=== PATIENT | male | born 2000 | race Caucasian/White ===

== ENCOUNTER 2019-08-09 16:32 | Emergency (ER) | payer OTHER ==
[2019-08-09 17:16] LABS: BASOPHILS % (AUTO) 0.4 %; EOSINOPHILS # (AUTO) 0.2 10^3/uL (0.0-0.7); EOSINOPHILS % (AUTO) 2.3 %; HGB - HEMOGLOBIN 15.7 g/dL (14.0-18.0); LYMPHOCYTES # (AUTO) 1.9 10^3/uL (1.5-3.5); LYMPHOCYTES % (AUTO) 20.2 %; MEAN CORPUSCULAR HEMOGLOBIN 30.8 pg (27.0-31.0); MEAN CORPUSCULAR HGB CONC 35.6 g/dL (32.0-36.0); MEAN CORPUSCULAR VOLUME 86.6 fL (80.0-94.0); MEAN PLATELET VOLUME 10.5 fL (7.4-11.4); MONOCYTES # (AUTO) 0.8 10^3/uL (0.0-1.0); MONOCYTES % (AUTO) 8.7 %; NEUTROPHILS # (AUTO) 6.4 10^3/uL (1.5-6.6); NEUTROPHILS % (AUTO) 67.9 %; PLT - PLATELET COUNT 250 10^3/uL (130-450); RED BLOOD COUNT 5.09 10^6/uL (4.70-6.10); RED CELL DISTRIBUTION WIDTH 11.7 % (12.0-15.0); WHITE BLOOD COUNT 9.5 x10^3/uL (4.8-10.8)
[2019-08-09 17:35] LABS: ACETAMINOPHEN < 10 ug/mL (10-30); ALBUMIN 4.7 g/dL (3.2-5.5); ALBUMIN/GLOBULIN RATIO 1.4 (1.0-2.2); ALKALINE PHOSPHATASE 80 IU/L (42-121); ALT ALANINE AMINOTRANSFERASE 28 IU/L (10-60); AST ASPARTATE AMINOTRANSFERASE 21 IU/L (10-42); BILIRUBIN,TOTAL 0.7 mg/dL (0.2-1.0); BUN - BLOOD UREA NITROGEN 22 mg/dL (6-20); CALCIUM 9.9 mg/dL (8.5-10.3); CARBON DIOXIDE - CO2 29 mmol/L (21-32); CHLORIDE 102 mmol/L (101-111); CREATININE 0.8 mg/dL (0.6-1.2); GFR - MDRD 125 (>89); GLUCOSE 102 mg/dL (70-100); LIPASE 30 U/L (22-51); SALICYLATE < 6.0 mg/dL; SODIUM 139 mmol/L (135-145); TOTAL PROTEIN 8.1 g/dL (6.7-8.2)
[2019-08-09 19:26] LABS: MUDS CUTOFF CONCENTRATIONS CUTOFF CONC BELOW:
[2019-08-09 19:29] VITALS: BP 127/73
[2019-08-09 19:29] LABS: BILIRUBIN,URINE NEGATIVE (NEGATIVE); GLUCOSE, URINE (UA) NEGATIVE (NEGATIVE); KETONES,URINE (UA) NEGATIVE (NEGATIVE); LEUKOCYTE ESTERASE, URINE NEGATIVE (NEGATIVE); NITRITE,URINE NEGATIVE (NEGATIVE); OCCULT BLOOD,URINE NEGATIVE (NEGATIVE); PROTEIN,URINE NEGATIVE (NEGATIVE); UROBILINOGEN,URINE 0.2 (NORMAL) E.U./dL (NORMAL)
[2019-08-09 19:43] LABS: CLARITY,URINE CLEAR (CLEAR)
[2019-08-09 19:44] LABS: AMPHETAMINE SCREEN,URINE NEGATIVE (NEGATIVE); BENZODIAZEPINES SCREEN, URINE NEGATIVE (NEGATIVE); COCAINE SCREEN URINE NEGATIVE (NEGATIVE); METHADONE SCREEN, URINE NEGATIVE (NEGATIVE); METHAMPHETAMINES SCREEN, URINE NEGATIVE (NEGATIVE); OPIATE SCREEN, URINE NEGATIVE (NEGATIVE); OXYCODONE SCREEN, URINE NEGATIVE (NEGATIVE); PROPOXYPHENE SCREEN, URINE NEGATIVE (NEGATIVE); TRICYCLIC ANTIDEPRESSANT,URINE NEGATIVE (NEGATIVE)
--- NOTE | 2019-08-09 20:45 | ED Physician Documentation ---
PD HPI MHE - Stated complaint Stated Complaint: MHE - Chief complaint Chief Complaint: MHE - History obtained from History obtained from: Patient - History of Present Illness Primary symptom: Suicidal ideation Timing - onset: Today Pain level max: 0 Pain level now: 0 - Additional information Additional information: 18-year-old male presents to the emergency department stating that he was brought in by his command. He denies any suicidal ideation or stating that he ever was suicidal. He states that when he was 15 he had vague suicidal thoughts but never acted on them. He denies any homicidal ideation as well. States he is sleeping normally. He states he lives with a good friend and will not harm himself. His command states that he sent a vaguely suicidal text. It did not explicitly state that he was suicidal. They do not feel he is suicidal either. nothing makes it better or worse. Review of Systems Constitutional: denies: Fever, Chills Respiratory: denies: Cough GI: denies: Vomiting Psychiatric: denies: Depressed, Suicidal, Homicidal, Hallucinations, Delusions, Anxiety, Insomnia PD PAST MEDICAL HISTORY - Past Medical History Past Medical History: No - Past Surgical History Past Surgical History: No - Allergies Allergies/Adverse Reactions: Allergies Allergy/AdvReac Type Severity Reaction Status Date / Time No Known Drug Allergies Allergy Verified 08/09/19 16:36 - Living Situation Living Arrangement: reports: At home - Social History Does the pt smoke?: No Does the pt drink ETOH?: No Does the pt have substance abuse?: No PD ED PE NORMAL - Vitals Vital signs reviewed: Yes - General General: Alert and oriented X 3, No acute distress, Well developed/nourished - HEENT HEENT: PERRL, Moist mucous membranes - Neck Neck: Supple, no meningeal sign - Cardiac Cardiac: RRR, Strong equal pulses - Respiratory Respiratory: No respiratory distress, Clear bilaterally - Abdomen Abdomen: Soft, Non tender, Non distended - Derm Derm: Warm and dry - Neuro Neuro: Alert and oriented X 3 - Psych Psych: Normal mood, Normal affect Results - Vitals Vitals: Vital Signs - 24 hr 08/09/19 08/09/19 16:36 19:28 Temperature 36.9 C 36.6 C Heart Rate 80 72 Respiratory 15 18 Rate Blood Pressure 119/78 127/73 O2 Saturation 95 98 Oxygen O2 Source Room air - Labs Labs: Laboratory Tests 08/09/19 08/09/19 08/09/19 17:05 17:05 17:05 WBC 9.5 RBC 5.09 Hgb 15.7 Hct 44.1 MCV 86.6 MCH 30.8 MCHC 35.6 RDW 11.7 L Plt Count 250 MPV 10.5 Neut # (Auto) 6.4 Lymph # (Auto) 1.9 [place] # (Auto) 0.8 Eos # (Auto) 0.2 Baso # (Auto) 0.0 Absolute Nucleated RBC 0.00 Nucleated RBC % 0.0 Sodium 139 Potassium 3.7 Chloride 102 Carbon Dioxide 29 Anion Gap 8.0 BUN 22 H Creatinine 0.8 Estimated GFR (MDRD) 125 Glucose 102 H Calcium 9.9 Total Bilirubin 0.7 AST 21 ALT 28 Alkaline Phosphatase 80 Total Protein 8.1 Albumin 4.7 Globulin 3.4 Albumin/Globulin Ratio 1.4 Lipase 30 TSH 3.20 Urine Color Urine Clarity Urine pH Ur Specific [place] Urine Protein Urine Glucose (UA) Urine Ketones Urine Occult Blood Urine Nitrite Urine Bilirubin Urine Urobilinogen Ur Leukocyte Esterase Ur Microscopic Review Urine Culture Comments Salicylates < 6.0 Urine Opiates Screen Ur Oxycodone Screen Urine Methadone Screen Ur Propoxyphene Screen Acetaminophen < 10 L Ur Barbiturates Screen Ur Tricyclics Screen Ur Phencyclidine Scrn Ur Amphetamine Screen U Methamphetamines Scrn U Benzodiazepines Scrn Urine Cocaine Screen U Cannabinoids Screen Ethyl Alcohol 9.7 08/09/19 18:00 WBC RBC Hgb Hct MCV MCH MCHC RDW Plt Count MPV Neut # (Auto) Lymph # (Auto) [place] # (Auto) Eos # (Auto) Baso # (Auto) Absolute Nucleated RBC Nucleated RBC % Sodium Potassium Chloride Carbon Dioxide Anion Gap BUN Creatinine Estimated GFR (MDRD) Glucose Calcium Total Bilirubin AST ALT Alkaline Phosphatase Total Protein Albumin Globulin Albumin/Globulin Ratio Lipase TSH Urine Color YELLOW Urine Clarity CLEAR Urine pH 6.0 Ur Specific [place] 1.020 Urine Protein NEGATIVE Urine Glucose (UA) NEGATIVE Urine Ketones NEGATIVE Urine Occult Blood NEGATIVE Urine Nitrite NEGATIVE Urine Bilirubin NEGATIVE Urine Urobilinogen 0.2 (NORMAL) Ur Leukocyte Esterase NEGATIVE Ur Microscopic Review NOT INDICATED Urine Culture Comments NOT INDICATED Salicylates Urine Opiates Screen NEGATIVE Ur Oxycodone Screen NEGATIVE Urine Methadone Screen NEGATIVE Ur Propoxyphene Screen NEGATIVE Acetaminophen Ur Barbiturates Screen NEGATIVE Ur Tricyclics Screen NEGATIVE Ur Phencyclidine Scrn NEGATIVE Ur Amphetamine Screen NEGATIVE U Methamphetamines Scrn NEGATIVE U Benzodiazepines Scrn NEGATIVE Urine Cocaine Screen NEGATIVE U Cannabinoids Screen NEGATIVE Ethyl Alcohol PD MEDICAL DECISION MAKING - ED course Complexity details: reviewed results, re-evaluated patient, considered differential, d/w patient ED course: 18-year-old male with report of vague suicidal ideation. He denies this to me. His command is comfortable taking him back home and [place] Patient is able to contract for safety. No evidence of suicidal intent at this time. Patient counseled regarding signs and symptoms for which I believe and urgent re-evaluation would be necessary. Patient with good understanding of and agreement to plan and is comfortable going home at thi s time This document was made in part using voice recognition software. While efforts are made to proofread this document, sound alike and grammatical errors may occur. Departure - Departure Disposition: 01 Home, Self Care Clinical Impression: Depression Qualifiers: Depression Type: unspecified Qualified Code(s): F32.9 - Major depressive disorder, single episode, unspecified Condition: Good Instructions: ED Depression Follow-Up: your,doctor tomorrow [Other] Comments: You have agreed to keep yourself safe tonight. [place] You deny feeling suicidal today. Your friend will stay with you tonight. Discharge Date/Time: 08/09/19 20:49
== END 2019-08-09 20:49 | disposition home or self-care (01) ==
LOC: ED 16:32
DX: F32.9 Major depressive disorder, single episode, unspecified (principal)
CPT/HCPCS: 36415; 80053; 80306; 80307; 80320; 80329; 81001; 81003; 83690; 84443; 85025; 87086; 99283

== ENCOUNTER 2022-03-30 22:20 | Emergency (ER) | payer OTHER ==
[2022-03-30 23:08] LABS: BASOPHILS % (AUTO) 0.4 %; EOSINOPHILS # (AUTO) 0.3 10^3/uL (0.0-0.7); EOSINOPHILS % (AUTO) 3.7 %; HCT - HEMATOCRIT 43.3 % (42.0-52.0); HGB - HEMOGLOBIN 15.5 g/dL (14.0-18.0); LYMPHOCYTES # (AUTO) 1.8 10^3/uL (1.5-3.5); LYMPHOCYTES % (AUTO) 20.1 %; MEAN CORPUSCULAR HEMOGLOBIN 31.6 pg (27.0-31.0); MEAN CORPUSCULAR HGB CONC 35.8 g/dL (32.0-36.0); MEAN CORPUSCULAR VOLUME 88.4 fL (80.0-94.0); MEAN PLATELET VOLUME 10.5 fL (7.4-11.4); MONOCYTES # (AUTO) 0.7 10^3/uL (0.0-1.0); MONOCYTES % (AUTO) 8.2 %; NEUTROPHILS % (AUTO) 67.4 %; PLT - PLATELET COUNT 262 10^3/uL (130-450); RED CELL DISTRIBUTION WIDTH 11.5 % (12.0-15.0)
[2022-03-30 23:18] LABS: ALBUMIN 4.4 g/dL (3.2-5.5); ALBUMIN/GLOBULIN RATIO 1.4 (1.0-2.2); BILIRUBIN,TOTAL 0.7 mg/dL (0.2-1.0); CALCIUM 9.3 mg/dL (8.5-10.3); CREATININE 1.2 mg/dL (0.6-1.2); POTASSIUM 3.7 mmol/L (3.5-5.0); TOTAL PROTEIN 7.6 g/dL (6.7-8.2)
[2022-03-30] MEDS ORDERED: SODIUM CHLORIDE 0.9% 1,000 ML IV STA (23:30)
--- NOTE | 2022-03-30 23:36 | ED Physician Documentation ---
History of Present Illness - Stated complaint Stated Complaint: HIGH HR, CHEST PRESSURE, HEADACHE - Chief complaint Chief Complaint: General - History obtained from History obtained from: Patient - Additonal information Additional information: Patient is a 21-year-old male with no significant past medical history presenting for evaluation of elevated heart rate intermittently throughout this afternoon.Patient has been feeling his heart racing at times throughout the day with no known exacerbating factor. He was having a drink with a friend this evening and felt his heart racing. His watch was showing heart rates jumping from 100-130 which concerned the patient and prompted him to come to the emergency department. He has reported intermittent episodes of chest pain since having COVID 3 months ago. 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 He reports occasionally feeling short of breath but not today. He does not currently have chest pain. He denies any radiation to the chest pain. He reports feeling a chest pain and shortness of breath more when he is working out.He denies leg pain or swelling. No known history of PE or DVT. No family history of clots, CA or arrhythmia in young persons. Patient denies dizziness, syncope, abdominal complaints. He denies [id number] cold medication use, excess caffeine use, drug use. He reports only having a few small sips of alcohol this evening But endorses heavier alcohol use the evening before. Review of Systems Constitutional: denies: Fever Nose: reports: Congestion (Allergies) Cardiac: reports: Chest pain / pressure, Palpitations Respiratory: reports: Dyspnea, Cough GI: denies: Abdominal Pain, Nausea, Vomiting : denies: Dysuria Skin: denies: Rash Musculoskeletal: denies: Back pain, Extremity pain Neurologic: denies: Syncope, Headache PD PAST MEDICAL HISTORY - Past Medical History Past Medical History: No Cardiovascular: None Respiratory: None Neuro: None Endocrine/Autoimmune: None GI: None : None HEENT: None Psych: None Musculoskeletal: None Derm: None - Past Surgical History Past Surgical History: No - Present Medications Home Medications: Ambulatory Orders Medication Instructions Recorded Confirmed No Known Home Medications 03/30/22 03/30/22 - Allergies Allergies/Adverse Reactions: Allergies Allergy/AdvReac Type Severity Reaction Status Date / Time No Known Drug Allergies Allergy Verified 03/30/22 22:29 - Social History Does the pt smoke?: No Smoking Status: Never smoker Does the pt drink ETOH?: No Does the pt have substance abuse?: No - POLST Patient has POLST: No PD ED PE NORMAL - General General: Alert and oriented X 3, No acute distress, Well developed/nourished - HEENT HEENT: Atraumatic, Moist mucous membranes - Neck Neck: Supple, no meningeal sign - Cardiac Cardiac: RRR, No murmur, Strong equal pulses - Respiratory Respiratory: No respiratory distress, Clear bilaterally - Abdomen Abdomen: Normal bowel sounds, Soft, Non tender, Non distended - Derm Derm: Normal color, No rash - Extremities Extremities: No edema, No calf tenderness / cord - Neuro Neuro: Alert and oriented X 3, No motor deficit, Normal speech - Psych Psych: Normal mood, Normal affect Results - Vitals Vitals: Vital Signs - 24 hr 03/30/22 03/30/22 03/30/22 22:25 23:10 23:35 Temperature 37.3 C Heart Rate 104 H 100 89 Respiratory 18 16 15 Rate Blood Pressure 139/77 H 134/121 H O2 Saturation 100 98 100 03/31/22 03/31/22 03/31/22 00:51 01:10 01:52 Temperature Heart Rate 97 84 Respiratory 19 14 17 Rate Blood Pressure 126/70 119/87 H 133/85 H O2 Saturation 99 98 98 03/31/22 02:00 Temperature 37.1 C Heart Rate 86 Respiratory 18 Rate Blood Pressure 133/87 H O2 Saturation 98 Oxygen O2 Source Room air - EKG (time done) 2253 Rate: Rate (enter#) (94) Rhythm: NSR [place]: Normal Ischemia: No: ST elevation c/w ischemia Computer interpretation: Agree with computer - Labs Labs: Laboratory Tests 03/30/22 03/30/22 03/30/22 22:59 22:59 22:59 WBC 9.0 RBC 4.90 Hgb 15.5 Hct 43.3 MCV 88.4 MCH 31.6 H MCHC 35.8 RDW 11.5 L Plt Count 262 MPV 10.5 Neut # (Auto) 6.0 Lymph # (Auto) 1.8 [place] # (Auto) 0.7 Eos # (Auto) 0.3 Baso # (Auto) 0.0 Absolute Nucleated RBC 0.00 Nucleated RBC % 0.0 D-Dimer 294.9 H Sodium 140 Potassium 3.7 Chloride 104 Carbon Dioxide 26 Anion Gap 10.0 BUN 17 Creatinine 1.2 Estimated GFR (MDRD) 76 L Glucose 109 H Calcium 9.3 Total Bilirubin 0.7 AST 26 ALT 37 Alkaline Phosphatase 61 Troponin I High Sens Total Protein 7.6 Albumin 4.4 Globulin 3.2 Albumin/Globulin Ratio 1.4 03/30/22 22:59 WBC RBC Hgb Hct MCV MCH MCHC RDW Plt Count MPV Neut # (Auto) Lymph # (Auto) [place] # (Auto) Eos # (Auto) Baso # (Auto) Absolute Nucleated RBC Nucleated RBC % D-Dimer Sodium Potassium Chloride Carbon Dioxide Anion Gap BUN Creatinine Estimated GFR (MDRD) Glucose Calcium Total Bilirubin AST ALT Alkaline Phosphatase Troponin I High Sens < 2.3 L Total Protein Albumin Globulin Albumin/Globulin Ratio PD MEDICAL DECISION MAKING - ED course Complexity details: reviewed results, re-evaluated patient, d/w patient ED course: Patient is a 21-year-old male presenting for evaluation of tachycardia. [place] and does describe at times having chest pain and shortness of breath. Therefore a D-dimer was obtained as initial heart rate was elevated and unable to apply PERC criteria. D-dimer is slightly elevated. EKG is a sinus rhythm. Other labs are reassuring. CT angio was obtained which is negative for pulmonary embolism. Other than initial triage heart rate, patient's heart rate has been in the 80s and 90s. He is asymptomatic here. Believe patient is able to follow-up with primary care doctor. Advised onDecreasing alcohol consumption. Patient was also counseled on strict return precautions. Departure - Departure Disposition: 01 Home, Self Care Clinical Impression: Tachycardia Condition: Stable Instructions: Tachycardia Comments: Pawan - You were evaluated for a fast heart rate. The exact cause is unclear but your heart rate seems to be better now. Your labs were overall reassuring and you had a CT scan of your lungs which did not show any significant a bnormalities.Please follow-up with your PCM through the [place].Please also avoid excess caffeine, alcohol and of course illicit substances.Please continue to stay hydrated. If your symptoms return, Please consider returning to the emergency department for another evaluation. Discharge Date/Time: 03/31/22 02:00
--- NOTE | 2022-03-30 23:39 | XRAY Report ---
PROCEDURE: Chest 1 View X-Ray INDICATIONS: cough TECHNIQUE: One view of the chest was acquired. COMPARISON: None FINDINGS: Surgical changes and devices: None. Lungs and pleura: No pleural effusions or pneumothorax. Lungs are clear. Mediastinum: Mediastinal contours appear normal. Heart size is normal. Bones and chest wall: No suspicious bony lesions. Overlying soft tissues appear unremarkable. IMPRESSION: No pneumonia found, source of cough is not identified. Reviewed by: Leonidse Tejeda MD on 03/30/2022 11:38 PM PDT Approved by: Leonides Tejeda MD on 03/30/2022 11:38 PM PDT Station ID: [id number]
[2022-03-31] MEDS ORDERED: IOPAMIDOL-300 100 ML VIAL ONE (00:06)
[2022-03-31] MEDS ORDERED: ONDANSETRON 4 MG/2 ML VIAL IVP STA (00:29)
[2022-03-31] MEDS ORDERED: IOPAMIDOL-300 100 ML VIAL IVP ONE (00:39)
--- NOTE | 2022-03-31 01:18 | CT Report ---
PROCEDURE: ANGIO CHEST W/WO INDICATIONS: SOB/CP/elevated ddimer, rule out PE CONTRAST: IV CONTRAST: Isovue 300 ml: 100 PO CONTRAST: *NO PO CONTRAST TECHNIQUE: After the administration of intravenous contrast, 2 mm axial images were acquired from the pulmonary apices to the posterior costophrenic angles during the arterial phase. In addition, 1 mm lung kernel and 5 mm soft tissue kernel reconstructions were performed. 3-dimensional coronal oblique maximum int ensity projection (MIP) reformats, 8 mm axial MIP, and 5 mm coronal and sagittal MPR reformats were t hen performed through the thorax. For radiation dose reduction, the following was used: automated exp osure control, adjustment of mA and/or kV according to patient size. COMPARISON: FINDINGS: Image quality: Excellent. Pulmonary arteries: Pulmonary arteries are normal in size, and demonstrate no intraluminal filling d efects to suggest central pulmonary embolism. Lungs and pleura: Lungs are clear. No pleural effusions or pneumothorax. Central and peripheral ai rways are patent. Mediastinum: Heart size is normal, without pericardial effusion. No mediastinal or hilar adenopathy . Thoracic aorta is normal in caliber and enhancement. Esophagus is normal in caliber, without hiat al hernia. Bones and chest wall: No suspicious bony lesions. Ribs and thoracic spine appear intact throughout. No axillary or supraclavicular adenopathy. The thyroid is normal in size and there are no incident al findings. Abdomen: Visualized upper abdominal solid organs appear normal in the early arterial phase of enhanc ement. IMPRESSION: No evidence of pulmonary embolus, source of shortness of breath and chest pain is not found. CLINICAL RECOMMENDATION STATEMENTS: In patients <35 years with an ITN detected on CT, MRI, or extrathyroidal ultrasound, the Committee re commends further evaluation with dedicated thyroid ultrasound if the nodule is "e1 cm and has no susp icious imaging features, and if the patient has normal life expectancy. In patients "e35 years with an ITN detected on CT, MRI, or extrathyroidal ultrasound, the Committee r ecommends further evaluation with dedicated thyroid ultrasound if the nodule is "e1.5 cm and has no s uspicious imaging features, and if the patient has normal life expectancy. (ACR, 2014) Reviewed by: Loenides Tejeda MD on 03/31/2022 1:17 AM PDT Approved by: Leonides Tejeda MD on 03/31/2022 1:17 AM PDT Station ID: [id number]
[2022-03-31 02:02] VITALS: BP 133/87
== END 2022-03-31 02:00 | disposition home or self-care (01) ==
LOC: ED 22:20
DX: R00.0 Tachycardia, unspecified (principal); Z20.822 Contact with and (suspected) exposure to COVID-19
CPT/HCPCS: 36415; 71045; 71275; 80053; 84484; 85025; 85379; 87635; 93005; 96361; 96374; 99282; 99284; Q9967

== ENCOUNTER 2022-11-29 15:17 | Emergency (ER) | payer OTHER ==
--- NOTE | 2022-11-29 15:32 | ED Physician Documentation ---
History of Present Illness - Stated complaint Stated Complaint: SI - Additonal information Additional information: Patient is 22-year-old male presenting to the emergency department with suicidal ideation. Brought in by EMS with thoughts of wanting to harm himself, specifically discussed with EMS driving his car into a tree or "punching a copying machine repairer". He endorses for depression and a strong dislike for his current working environment and coworkers its been ongoing for several months. Reports he has been seen in the emergency department once before in 2018 for similar symptoms but has never been hospitalized. Reports casual drinking with last alcoholic beverage last night but states that he drinks far less than he used to. Denies other illicit substances.Denies auditory or visual hallucinations. Review of Systems Unable to obtain: Other (Psychiatric disturbance) PD PAST MEDICAL HISTORY - Past Medical History Cardiovascular: None Respiratory: None Neuro: None Endocrine/Autoimmune: None GI: None : None HEENT: None Psych: None Musculoskeletal: None Derm: None - Past Surgical History Past Surgical History: No - Present Medications Home Medications: Ambulatory Orders Medication Instructions Recorded Confirmed No Known Home Medications 03/30/22 03/30/22 - Allergies Allergies/Adverse Reactions: Allergies Allergy/AdvReac Type Severity Reaction Status Date / Time No Known Drug Allergies Allergy Verified 11/29/22 15:39 - Social History Does the pt smoke?: No Smoking Status: Never smoker Does the pt drink ETOH?: No Does the pt have substance abuse?: No - POLST Patient has POLST: No PD ED PE NORMAL - Vitals Vital signs reviewed: Yes - General General: Alert and oriented X 3, No acute distress, Well developed/nourished - HEENT HEENT: Atraumatic, PERRL - Neck Neck: Supple, no meningeal sign - Cardiac Cardiac: RRR - Respiratory Respiratory: No respiratory distress - Abdomen Abdomen: Normal bowel sounds - Male Male : Deferred - Rectal Rectal: Deferred - Derm Derm: Normal color - Extremities Extremities: No deformity - Neuro Neuro: Alert and oriented X 3, pneumatic hoist 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 Endorses for suicidal ideation. Does not appear to be responding to internal stimuli. Is otherwise calm and Cooperative.) Results - Vitals Vitals: Vital Signs - 24 hr 11/30/22 06:04 Temperature 36.8 C Heart Rate 93 Respiratory 14 Rate Blood Pressure 134/67 H O2 Saturation 100 Oxygen O2 Source Room air - EKG (time done) 194 Rate: Rate (enter#) (77) Rhythm: NSR [place]: Normal Intervals: Normal [place] QRS: Normal Ischemia: Normal ST segments Computer interpretation: Agree with computer - Labs Labs: Laboratory Tests 11/29/22 11/29/22 11/29/22 15:36 15:36 15:36 WBC 9.5 RBC 5.22 Hgb 15.9 Hct 44.8 MCV 85.8 MCH 30.5 MCHC 35.5 RDW 11.2 L Plt Count 266 MPV 10.5 Neut # (Auto) 6.9 H Lymph # (Auto) 1.6 [place] # (Auto) 0.8 Eos # (Auto) 0.2 Baso # (Auto) 0.0 Absolute Nucleated RBC 0.00 Nucleated RBC % 0.0 PT 10.8 INR 1.0 Sodium 138 Potassium 4.0 Chloride 103 Carbon Dioxide 25 Anion Gap 10.0 BUN 21 H Creatinine 1.1 Estimated GFR (MDRD) 83 L Glucose 102 H Calcium 10.0 Magnesium 2.0 Total Bilirubin 0.6 AST 28 ALT 40 Alkaline Phosphatase 82 Total Creatine Kinase 309 H Total Protein 8.4 H Albumin 4.6 Globulin 3.8 Albumin/Globulin Ratio 1.2 Lipase 32 Salicylates < 6.0 Urine Opiates Screen Ur Oxycodone Screen Urine Methadone Screen Ur Propoxyphene Screen Acetaminophen < 10 L Ur Barbiturates Screen Ur Tricyclics Screen Ur Phencyclidine Scrn Ur Amphetamine Screen U Methamphetamines Scrn U Benzodiazepines Scrn Urine Cocaine Screen U Cannabinoids Screen Ethyl Alcohol < 5.0 SARS-CoV-2 (PCR) 11/29/22 11/29/22 15:43 15:44 WBC RBC Hgb Hct MCV MCH MCHC RDW Plt Count MPV Neut # (Auto) Lymph # (Auto) [place] # (Auto) Eos # (Auto) Baso # (Auto) Absolute Nucleated RBC Nucleated RBC % PT INR Sodium Potassium Chloride Carbon Dioxide Anion Gap BUN Creatinine Estimated GFR (MDRD) Glucose Calcium Magnesium Total Bilirubin AST ALT Alkaline Phosphatase Total Creatine Kinase Total Protein Albumin Globulin Albumin/Globulin Ratio Lipase Salicylates Urine Opiates Screen NEGATIVE Ur Oxycodone Screen NEGATIVE Urine Methadone Screen NEGATIVE Ur Propoxyphene Screen NEGATIVE Acetaminophen Ur Barbiturates Screen NEGATIVE Ur Tricyclics Screen NEGATIVE Ur Phencyclidine Scrn NEGATIVE Ur Amphetamine Screen NEGATIVE U Methamphetamines Scrn NEGATIVE U Benzodiazepines Scrn NEGATIVE Urine Cocaine Screen NEGATIVE U Cannabinoids Screen NEGATIVE Ethyl Alcohol SARS-CoV-2 (PCR) NOT DETECTED PD Medical Decision Making - ED course Complexity details: reviewed results, d/w patient Reviewed Lab Results: CBC, comprehensive metabolic panel, TSH, magnesium reviewed, within normal limits or nonactionable. ED course: Patient 22-year-old male presenting to the emergency department with suicidal ideation with plan. Afebrile, he medically stable and arrival to the emergency department. No demonstratable psychosis and patient is otherwise calm and cooperative. Comprehensive labs obtained within normal limits or nonactionable. At this time he is medically cleared for evaluation by psychiatric service. He is active duty and we will attempt to contact [facility] Final clinical impression: Suicidal ideation Departure - Departure Disposition: [facility] Clinical Impression: Suicidal ideation Discharge Date/Time: 11/30/22 06:30
[2022-11-29 15:41] LABS: BASOPHILS % (AUTO) 0.4 %; EOSINOPHILS # (AUTO) 0.2 10^3/uL (0.0-0.7); EOSINOPHILS % (AUTO) 1.6 %; HCT - HEMATOCRIT 44.8 % (42.0-52.0); HGB - HEMOGLOBIN 15.9 g/dL (14.0-18.0); LYMPHOCYTES # (AUTO) 1.6 10^3/uL (1.5-3.5); LYMPHOCYTES % (AUTO) 16.4 %; MEAN CORPUSCULAR HEMOGLOBIN 30.5 pg (27.0-31.0); MEAN CORPUSCULAR HGB CONC 35.5 g/dL (32.0-36.0); MEAN CORPUSCULAR VOLUME 85.8 fL (80.0-94.0); MEAN PLATELET VOLUME 10.5 fL (7.4-11.4); MONOCYTES # (AUTO) 0.8 10^3/uL (0.0-1.0); MONOCYTES % (AUTO) 8.4 %; NEUTROPHILS # (AUTO) 6.9 10^3/uL (1.5-6.6); NEUTROPHILS % (AUTO) 72.7 %; PLT - PLATELET COUNT 266 10^3/uL (130-450); RED BLOOD COUNT 5.22 10^6/uL (4.70-6.10); RED CELL DISTRIBUTION WIDTH 11.2 % (12.0-15.0); WHITE BLOOD COUNT 9.5 x10^3/uL (4.8-10.8)
[2022-11-29 15:51] LABS: MUDS CUTOFF CONCENTRATIONS CUTOFF CONC BELOW:
[2022-11-29 15:57] LABS: ACETAMINOPHEN < 10 ug/mL (10-30); ALBUMIN 4.6 g/dL (3.2-5.5); ALBUMIN/GLOBULIN RATIO 1.2 (1.0-2.2); ALKALINE PHOSPHATASE 82 IU/L (42-121); ALT ALANINE AMINOTRANSFERASE 40 IU/L (10-60); AST ASPARTATE AMINOTRANSFERASE 28 IU/L (10-42); BILIRUBIN,TOTAL 0.6 mg/dL (0.2-1.0); BUN - BLOOD UREA NITROGEN 21 mg/dL (6-20); CARBON DIOXIDE - CO2 25 mmol/L (21-32); CHLORIDE 103 mmol/L (101-111); CK- CREATINE KINASE 309 IU/L (22-269); CREATININE 1.1 mg/dL (0.6-1.2); ETOH - ETHANOL < 5.0 mg/dL; GFR - MDRD 83 (>89); GLUCOSE 102 mg/dL (70-100); LIPASE 32 U/L (22-51); PT - PROTHROMBIN TIME 10.8 secs (9.9-12.6); SALICYLATE < 6.0 mg/dL; SODIUM 138 mmol/L (135-145); TOTAL PROTEIN 8.4 g/dL (6.7-8.2)
[2022-11-29 16:10] LABS: AMPHETAMINE SCREEN,URINE NEGATIVE (NEGATIVE); BARBITURATE SCREEN,UR NEGATIVE (NEGATIVE); BENZODIAZEPINES SCREEN, URINE NEGATIVE (NEGATIVE); COCAINE SCREEN URINE NEGATIVE (NEGATIVE); METHADONE SCREEN, URINE NEGATIVE (NEGATIVE); METHAMPHETAMINES SCREEN, URINE NEGATIVE (NEGATIVE); OPIATE SCREEN, URINE NEGATIVE (NEGATIVE); OXYCODONE SCREEN, URINE NEGATIVE (NEGATIVE); PROPOXYPHENE SCREEN, URINE NEGATIVE (NEGATIVE); THC CANNABINOID SCREEN, URINE NEGATIVE (NEGATIVE); TRICYCLIC ANTIDEPRESSANT,URINE NEGATIVE (NEGATIVE)
--- NOTE | 2022-11-29 19:44 | ED Physician Documentation ---
ED Addendum - Addendum Addendum: 11/29/22 19:[address] Gutierrez at shift change. I presented the case to Dr. Gardner at [facility] and he accepts the patient. The patient is voluntary. Disposition: Transferred [facility] for psychiatric treatment: Condition: Stable Diagnosis: 1. Depression with suicidal ideation 11/29/22 20:26 Took call from telepsych physician, Dr. Sheffield. Recommends Lexapro 10 mg daily pending transfer.
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
[2022-11-30 06:04] VITALS: BP 134/67
[2022-11-30] MEDS ORDERED: ESCITALOPRAM 10 MG TABLET PO SCH (09:00)
== END 2022-11-30 06:30 ==
LOC: EDUNIT# → ED 15:17
DX: R45.851 Suicidal ideations (principal); F32.2 Major depressive disorder, single episode, severe without psychotic features; Z20.822 Contact with and (suspected) exposure to COVID-19
CPT/HCPCS: 36415; 80053; 80306; 80307; 80320; 80329; 82550; 83690; 83735; 85025; 85610; 87635; 93005; 99285; G0425; Q3014